=== PATIENT | female | born 2000 ===

== ENCOUNTER 2021-12-25 16:40 | Emergency (ER) | payer OTHER ==
[2021-12-25 17:55] LABS: Hematocrit 42.3 % (30.3-42.9); Hemoglobin 14.3 gm/dl (10.1-14.3); Mean Corpuscular HGB Conc 34 % (30-34); Mean Corpuscular Volume 95 fl (79-97); Platelet Count 242 K/mm3 (140-440); Red Blood Count 4.47 M/mm3 (3.65-5.03); Red Cell Distribution Width 13.1 % (13.2-15.2)
[2021-12-25 18:10] LABS: Alanine Aminotransferase 14 units/L (7-56); Albumin 4.5 g/dL (3.9-5); Blood Urea Nitrogen 9 mg/dL (7-17); Calcium 9.1 mg/dL (8.4-10.2); Hemolysis Index 13
[2021-12-25 18:12] LABS: BUN/Creatinine Ratio 18
[2021-12-25] MEDS ORDERED: ONDANSETRON 4 MG/2 ML INJ IV ONE (18:19)
[2021-12-25] MEDS ORDERED: KETOROLAC 30 MG/1 ML INJ IV ONE (18:19)
[2021-12-25 19:56] LABS: Mucus,Urine 3+ /HPF; WBC,Urine < 1.0 /HPF (0.0-6.0)
--- NOTE | 2021-12-25 20:00 | Emergency Department Report ---
<NIIBILLIEYESSICA Almanza - Last Filed: 12/27/21 00:28> ED Female HPI - General Chief complaint: Vaginal Bleeding Stated complaint: HEAVY VAGINAL BLEEDING X DAYS Time Seen by Provider: 12/25/21 17:24 Source: EMS Mode of arrival: Stretcher Limitations: No Limitations - History of Present Illness Initial comments: 21 yo female with no pmh presents to ED for evaluation of heavy vaginal bleeding. She states that she had a nexplanan removed one month ago then 3 days ago, she started her period for the first time in several years. She states that she had moderate bleeding for the first few days but today, she started to have heavy bleeding accompanied by severe cramping. She denies fever, dysuria. MD Complaint: vaginal bleeding -: Gradual, days(s) (2-3) Radiation: LLQ, RLQ Severity: severe Severity scale (0 -10): 10 Quality: cramping Consistency: intermittent Are you Now?: No Associated Symptoms: vaginal bleeding, abdominal pain. denies: vaginal discharge, nausea/vomiting, fever/chills, headaches, loss of appetite, dysuria, hematuria, rash, seizure, shortness of breath, syncope, weakness - Related Data Sexually active: Yes Previous Rx's Medication Instructions Recorded Last Taken Type Ketorolac [Toradol] 10 mg PO Q6H PRN #12 tab 12/25/21 Unknown Rx Allergies Allergy/AdvReac Type Severity Reaction Status Date / Time No Known Allergies Allergy Verified 12/25/21 16:50 ED Review of Systems Comment: All other systems reviewed and negative Constitutional: malaise. denies: chills, diaphoresis, fever ENT: denies: congestion Respiratory: denies: shortness of breath Cardiovascular: denies: chest pain, palpitations Gastrointestinal: abdominal pain. denies: nausea, vomiting, diarrhea, he matemesis, melena, hematochezia Genitourinary: denies: urgency, dysuria, frequency, hematuria, discharge Musculoskeletal: denies: back pain Neurological: denies: headache, weakness ED Past Medical Hx - Medications Home Medications: Home Medications Medication Instructions Recorded Confirmed Last Taken Type Ketorolac [Toradol] 10 mg PO Q6H PRN #12 tab 12/25/21 Unknown Rx ED Physical Exam - General Limitations: No Limitations General appearance: alert, in no apparent distress - Head Head exam: Present: atraumatic, normocephalic - Eye Eye exam: Present: normal appearance. Absent: conjunctival injection - Neck Neck exam: Present: normal inspection. Absent: lymphadenopathy - Respiratory Respiratory exam: Present: normal lung sounds bilaterally. Absent: respiratory distress, wheezes, chest wall tenderness - Cardiovascular Cardiovascular Exam: Present: regular rate, normal heart sounds - GI/Abdominal GI/Abdominal exam: Present: soft, normal bowel sounds. Absent: distended, tenderness, guarding, rebound, rigid - Extremities Exam Extremities exam: Present: normal inspection, normal capillary refill - Back Exam Back exam: Present: normal inspection. Absent: CVA tenderness (R), CVA tenderness (L) - Neurological Exam Neurological exam: Present: alert, oriented X3 - Psychiatric Psychiatric exam: Present: normal affect, normal mood - Skin Skin exam: Present: warm, dry, intact, normal color ED Medical Decision Making - Lab Data Result diagrams: 12/25/21 17:47 12/25/21 17:47 - Medical Decision Making 21 yo female with no pmh presents to ED for evaluation of heavy vaginal bleeding. She states that she had a nexplanan removed one month ago then 3 days ago, she started her period for the first time in several years. She states that she had moderate bleeding for the first few days but today, she s tarted to have heavy bleeding accompanied by severe cramping. She denies fever, dysuria. Physical exam and workup unremarkable. Pain resolved after medication. Patient will be discharged home with toradol to use as needed and advised to follow up with pcp or legal department manager for further evaluation and management or return to ED as needed. She verbalized understanding of and agreement with plan of care. ED Disposition Clinical Impression: Vaginal bleeding, Dysmenorrhea Disposition: 01 HOME / SELF CARE / HOMELESS Is pt being admited?: No Does the pt Need Aspirin: No Condition: Stable Instructions: Abnormal Uterine Bleeding, [id number], Dysmenorrhea, [id number] Additional Instructions: Take medications as prescribed. Follow up with your primary care provider or legal department manager for further evaluation and management. Return to ED as needed. Prescriptions: Ketorolac [Toradol] 10 mg PO Q6H PRN #12 tab PRN Reason: Pain Referrals: CLIFF HEATH MD [Primary Care Provider] - 3-5 Days Forms: Work/School Release Form(ED) Time of Disposition: 20:00 <SAMIRACHARLOTTE HUTCHINSON - Last Filed: 12/27/21 18:21> ED Review of Systems ROS: Stated complaint: HEAVY VAGINAL BLEEDING X DAYS Other details as noted in HPI ED Course Vital Signs 12/25/21 12/25/21 16:43 20:41 Temperature 97.6 F Pulse Rate 85 81 Respiratory 16 14 Rate Blood Pressure 130/80 126/87 [Right] O2 Sat by Pulse 98 100 Oximetry ED Medical Decision Making - Lab Data Result diagrams: 12/25/21 17:47 12/25/21 17:47 Critical care attestation.: If time is entered above; I have spent that time in minutes in the direct care of this critically ill patient, excluding procedure time. ED Disposition Is pt being admited?: No Does the pt Need Aspirin: No
[2021-12-25 20:12] LABS: Color,Urine Yellow (Yellow)
[2021-12-25 20:13] LABS: Bilirubin,Urine 1+ (Negative); Blood,Urine 3+ (Negative); Ictotest,Urine Negative (Negative)
[2021-12-25 20:42] VITALS: BP 126/87
== END 2021-12-25 20:42 | disposition home or self-care (01) ==
LOC: ED 16:40
DX: N89.8 Other specified noninflammatory disorders of vagina (principal); N94.6 Dysmenorrhea, unspecified
CPT/HCPCS: 36415; 80053; 81001; 84702; 85027; 96374; 96375; 99284; J1885; J2405